=== PATIENT | female | born 1940 | race Caucasian/White ===

== ENCOUNTER → 2018-07-16 | Outpatient (CLI) | payer OTHER ==
--- NOTE | 2018-07-16 17:07 | KCIC ---
SHOULDER 2+V LEFT History: Left shoulder pain, soft tissue swelling and limited range of motion Comparison: None. Findings: 4 views of the left shoulder are submitted. There is narrowing of the acromiohumeral distance. No acute fracture is identified. Humeral head articulates with the glenoid. There are nonspecific soft tissue calcifications more posteriorly. There is soft tissue swelling. Impression: 1. There is soft tissue swelling. No acute fracture is identified. Electronically signed by: Gustavo Mazariegos MD (07/16/2018 5:04 PM) [facility]
== END | disposition home or self-care (01) ==
LOC: KCIC 14:43
PROVIDERS: ATTEND Family Medicine
DX: M25.512 Pain in left shoulder (principal); M79.89 Other specified soft tissue disorders
CPT/HCPCS: 73030

== ENCOUNTER → 2018-09-03 | Outpatient (CLI) | payer OTHER ==
--- NOTE | 2018-09-03 16:40 | KCIC ---
MR of the left shoulder HISTORY: Left shoulder pain. Injury in July. TECHNIQUE: Routine multiplanar sequences are obtained. FINDINGS: Moderate to severe motion degradation Acromioclavicular joint is mildly degenerative. Full-thickness rupture of the supraspinatus and infraspinatus tendons with severe retraction to the superior glenoid. High-grade subscapularis tendon tear. Moderate to severe muscle atrophy with fatty infiltration. Large subdeltoid bursal effusion which communicates with a joint effusion. Severe primary osteoarthritis of the glenohumeral joint. There is flattening and deformity of the medial humeral head articular surface with a scalloped concave morphology. There is flattening and volume loss of the glenoid. Diffuse labral irregularity compatible with degeneration/degenerative tearing. Biceps tendon not well seen. Marrow edema within the medial humeral head and shaft, probably reactive. This is borderline hypointense on T1-weighted images, somewhat greater than would be typical for reactive change or red marrow hyperplasia, however. No overtly aggressive bone destruction. No evidence of acute fracture. There is diffuse soft tissue edema. IMPRESSION: 1. Massive rotator cuff tear. 2. Large joint and bursal effusion. 3. Severe primary osteoarthritis with chronic appearing deformity and volume loss of the humeral head and glenoid. Diffuse labral degeneration/tear. 4. Nonvisualized biceps tendon. 5. Marrow heterogeneity at the medial humeral head and proximal shaft, could be hematopoietic marrow or reactive in nature, although the degree of T1 signal loss is somewhat greater than typical. Correlate for any history of myeloproliferative disorder, depending on clinical concern nuclear medicine bone scan could be obtained for further evaluation. Electronically signed by: Luiz Hadley MD (09/03/2018 4:37 PM) [facility]
== END | disposition home or self-care (01) ==
LOC: KCIC MRI 10:28
PROVIDERS: ATTEND Orthopaedic Surgery Sports Medicine
DX: S46.012A Strain of muscle(s) and tendon(s) of the rotator cuff of left shoulder, initial encounter (principal); M25.412 Effusion, left shoulder; M19.012 Primary osteoarthritis, left shoulder; M62.58 Muscle wasting and atrophy, not elsewhere classified, other site; X58.XXXA Exposure to other specified factors, initial encounter; Y93.89 Activity, other specified; Y92.89 Other specified places as the place of occurrence of the external cause; Y99.8 Other external cause status
CPT/HCPCS: 73221

== ENCOUNTER 2019-01-12 14:36 | Inpatient (IN) | payer OTHER ==
[~2019-01-12] VITALS: Ht 157.5 cm; Wt 51.7 kg
[2019-01-12] MEDS ORDERED: MORPHINE SULFATE 4 MG/ML VIAL. IV/SQ PRN (15:15)
[2019-01-12 15:35] LABS: BASO # 0.1 x10^3/uL (0.0-0.2); BASO % 1 % (0-3); EOS # 0.2 x10^3/uL (0.0-0.7); EOS % 2 % (0-3); HEMATOCRIT 31.6 % (36.0-47.0); HEMOGLOBIN 10.6 g/dL (12.0-15.5); LYMPH # 1.8 x10^3/uL (1.0-4.8); LYMPH % 21 % (24-48); MEAN CORPUSCULAR HEMOGLOBIN 31 pg (25-35); MEAN CORPUSCULAR HGB CONC 33 g/dL (31-37); MEAN CORPUSCULAR VOLUME 92 fL (79-100); MONO # 0.7 x10^3/uL (0.0-1.1); MONO % 8 % (0-9); NEUT % 68 % (31-73); PLATELET COUNT 337 x10^3/uL (140-400); RED BLOOD COUNT 3.44 x10^6/uL (3.50-5.40); RED CELL DISTRIBUTION WIDTH 13.9 % (11.5-14.5); WHITE BLOOD COUNT 8.8 x10^3/uL (4.0-11.0)
[2019-01-12 15:45] LABS: CALCIUM 10.3 mg/dL (8.5-10.1); CREATININE 1.4 mg/dL (0.6-1.0); GFR 36.2; POTASSIUM 4.5 mmol/L (3.5-5.1)
[2019-01-12 15:48] LABS: PROTHROMBIN TIME PATIENT 13.2 SEC (11.7-14.0)
[2019-01-12 15:52] LABS: ALBUMIN 4.1 g/dL (3.4-5.0); ALBUMIN/GLOBULIN RATIO 1.1 (1.0-1.7); MAGNESIUM 1.8 mg/dL (1.8-2.4); TOTAL BILIRUBIN 0.6 mg/dL (0.2-1.0)
[2019-01-12] MEDS ORDERED: diazePAM 2 MG TABLET PO ONE (16:00)
[2019-01-12] MEDS ORDERED: IV NORMAL SALINE 1000ML BAG 1,000 ML IV ONE ×2 (16:00→19:15)
[2019-01-12] MEDS ORDERED: CONTRAST GIVEN. MC PRN (16:00)
[2019-01-12] MEDS ORDERED: IOHEXOL 350 MG/ML 100 ML VIAL. IV ONE (16:15)
--- NOTE | 2019-01-12 16:57 | RAD ---
CT HEAD AND CERVICAL SPINE WO Date: 01/12/2019 3:11 PM Clinical Indication: Headache, neck pain Comparison: None. Technique: 5 mm axial tomographic images were obtained of the head without contrast. These were viewed on brain and bone windows. Noncontrast CT of the cervical spine was performed. Sagittal and coronal reformats were performed and evaluated. One or more of the following dose reduction techniques were utilized: Automated exposure control (AEC), Adjustment of mA and/or kV according to patient size, Use of iterative reconstruction technique such as ASiR, CT scan done according to ALARA and image gently/image wisely HEAD FINDINGS: Mild generalized cerebral and cerebellar volume loss. Moderate nonspecific periventricular hypoattenuation, most commonly seen with chronic small vessel ischemic disease. No intra- or extra-axial mass or fluid collection. No acute hemorrhage. The ventricles are normal in size, shape, and morphology. The curtis-white matter junction is normal. The basilar cisterns are patent. The visualized paranasal sinuses are normal. The visualized portions of the orbits and globes are normal. The mastoid air cells are clear. No aggressive osseous lesion or fracture. CERVICAL SPINE FINDINGS: Straightening of the cervical lordosis. Trace anterolisthesis at C2-3. Trace retrolisthesis at C4-5. Trace anterolisthesis of T1-T2. No acute fracture. No aggressive lytic or blastic osseous lesions. Severe multilevel degenerative disc space height loss. Multilevel moderate spinal canal stenosis secondary to disc protrusions and marginal osteophytes, severe at C4-5 and C5-6. Multilevel moderate to severe neuroforaminal narrowing secondary to uncovertebral arthrosis. Multilevel severe facet arthrosis. The thyroid gland is normal. No cervical lymphadenopathy. Bilateral carotid atherosclerosis. The visualized aerodigestive tract is normal. The visualized portions of the lungs are clear. IMPRESSION: 1. No acute intracranial process. 2. No acute cervical spine fracture. 3. Advanced cervical spondylosis with severe spinal stenosis at C4-5 and C5-6. Electronically signed by: Gustavo Kim MD (01/12/2019 4:54 PM) [facility]
[2019-01-12 17:17] LABS: BILIRUBIN,URINE NEGATIVE (NEG); CLARITY,URINE CLEAR; COLOR,URINE YELLOW; NITRITE,URINE NEGATIVE (NEG); PROTEIN,URINE NEGATIVE (NEG-TRACE); UROBILINOGEN,URINE 0.2 mg/dL (0.2 mg/dL)
--- NOTE | 2019-01-12 17:20 | RAD ---
Exam: CT of chest, abdomen and pelvis and bilateral lower extremities INDICATION: Chest and back pain with leg tightness TECHNIQUE: Sequential axial images through the chest, abdomen and pelvis and bilateral lower extremities obtained following the administration of 100 mL of Omni 350 IV contrast. Sagittal and coronal reformatted images were reconstructed from the axial data and reviewed. Comparisons: None FINDINGS: Visualized portions of the thyroid. No enlarged mediastinal lymph nodes are identified. Heart is enlarged. No pericardial effusion. Thoracic aorta has a normal course and caliber. Pulmonary artery is not enlarged. Airways are patent. There are strandy opacities at the lung bases likely representing atelectasis. No suspicious lung nodules. No pleural effusion or thickening. Evaluation of the solid organs is limited secondary to arterial phase of the exam. Liver, spleen, pancreas and adrenals are unremarkable. Gallstones are noted within the gallbladder. Within the upper pole of the right kidney there is a 3.0 cm enhancing mass. No perinephric inflammation or hydronephrosis. No renal or ureteral calculi are identified. Bladder is distended and appears thin-walled. Uterus is absent. No abnormal adnexal mass. Diverticulosis is noted throughout the colon. Otherwise, Large and small bowel are unremarkable. Appendix is not identified. No free intra-abdominal air or fluid. No enlarged intra-abdominal lymph nodes. Abdominal aorta has a normal course and caliber. No significant atherosclerotic plaque identified in the abdominal aorta or major branch vessels. S-shaped scoliotic curvature of the thoracolumbar spine. No suspicious osseous lesions or acute fractures are identified. Lower extremity: Bilateral lower extreme the arterial vasculature is patent. There is a moderate-sized right suprapatellar effusion. There is a small left-sided suprapatellar effusion. No acute fractures. IMPRESSION: 1. No evidence for aortic dissection or aneurysm. 2. Bilateral lower extremity arterial vasculature is patent. 3. A 3.0 cm enhancing mass at the upper pole of the right kidney, favored represent primary renal malignancy. 4. Diverticulosis without evidence of acute diverticulitis. 5. Bladder is markedly distended. Exposure: One or more of the following in the visualized dose reduction techniques were utilized for this examination: 1. Automated exposure control 2. Adjustment of the MA and/or KV according to patient size 3. Use of iterative of reconstructive technique Electronically signed by: Jacob Polanco MD (01/12/2019 5:16 PM) [facility]
[2019-01-12 17:25] LABS: SQUAMOUS EPITHELIAL CELL,UR MOD /LPF
[2019-01-12 17:26] LABS: BACTERIA,URINE MODERATE /HPF (0-FEW); RBC,URINE OCC /HPF (0-2)
--- NOTE | 2019-01-12 18:19 | PHYS DOC ---
Past Medical History Past Medical History: Diabetes-Type II, Hypertension Past Surgical History: Hysterectomy Alcohol Use: None Drug Use: None Adult General Chief Complaint Chief Complaint: CHEST PAIN HPI HPI Patient is a 78 year old female with history of hypertension, diabetes type 2, chronic back pain, chronic neck pain, who presents to the ED today with multiple complaints. Patient is complaining of pain all the way from her neck, to her mid and low back as well as her legs, when asked if her chest hurts she says yes everything hurts, when asked if her abdomen hurts, she says yes, she also reports she had her eyes dilated 3 days ago for degenerative eye disease and has had blurry vision on and off since then. Patient states she does not know when this pain began but she states it is always there. She is a very poor historian. Right now she is alone in the ED. Denies any known injury. Review of Systems Review of Systems Constitutional: Denies fever or chills [] Eyes: Denies change in visual acuity, redness, or eye pain [] HENT: Denies nasal congestion or sore throat [] Respiratory: Denies cough or shortness of breath [] Cardiovascular: Reports everything hurting including chest GI: reports everything hurting including her abdomen. Denies nausea, vomiting, bloody stools or diarrhea [] : Denies dysuria or hematuria [] Musculoskeletal:reports pain from neck legs Integument: Denies rash or skin lesions [] Neurologic: Denies headache, focal weakness or sensory changes [] All other systems were reviewed and found to be within normal limits, except as documented in this note. Current Medications Current Medications Current Medications Medications (Trade) Dose Ordered Sig/Nithin Start Time Stop Time Status Last Admin Dose Admin Diazepam (Valium) 2 mg 1X ONCE 01/12/19 16:00 01/12/19 16:01 DC 01/12/19 15:57 2 MG Info (CONTRAST GIVEN -- Rx MONITORING) 1 each PRN DAILY PRN 01/12/19 16:00 01/14/19 15:59 Iohexol (Omnipaque 350 Mg/ml) 100 ml 1X ONCE 01/12/19 16:15 01/12/19 16:16 DC 01/12/19 16:15 100 ML Morphine Sulfate (Morphine Sulfate) 4 mg PRN Q15MIN PRN 01/12/19 15:15 01/13/19 15:14 01/12/19 17:09 4 MG Sodium Chloride 1,000 ml @ 1,000 mls/hr 1X ONCE 01/12/19 16:00 01/12/19 16:59 DC 01/12/19 17:00 1,000 MLS/HR Allergies Allergies Allergies Coded Allergies Type Severity Reaction Last Updated Verified No Known Drug Allergies 01/12/19 No Physical Exam Physical Exam Constitutional: Well developed, well nourished, no acute distress, non-toxic appearance. [] HENT: Normocephalic, atraumatic, bilateral external ears normal, oropharynx moist, no oral exudates, nose normal. [] Eyes: PERRLA, EOMI, conjunctiva normal, no discharge. [] Neck: Normal range of motion, diffuse paraspinal muscle cervical tenderness as well as tenderness to her midline cervical spine, supple, no stridor. [] Cardiovascular:Heart rate regular rhythm, no murmur [] Lungs & Thorax: Bilateral breath sounds clear to auscultation [] Abdomen: Bowel sounds normal, soft, no tenderness, no masses, no pulsatile masses. [] Skin: Warm, dry, no erythema, no rash. [] Back: Diffuse tenderness throughout the spine, no CVA tenderness. [] Extremities: No tenderness, no cyanosis, no clubbing, ROM intact, no edema. [] Neurologic: Alert and oriented X 3, normal motor function, normal sensory function, no focal deficits noted. Negative Homans sign bilaterally Psychologic: Affect normal, judgement normal, mood normal. [] Current Patient Data Vital Signs Vital Signs Date Time Temp Pulse Resp B/P (MAP) Pulse Ox O2 Delivery O2 Flow Rate FiO2 01/12/19 18:00 64 16 164/73 (103) 98 Room Air 01/12/19 14:36 97.5 97.5 Lab Values Laboratory Tests Test 01/12/19 15:25 01/12/19 17:03 White Blood Count 8.8 x10^3/uL (4.0-11.0) Red Blood Count 3.44 x10^6/uL (3.50-5.40) L Hemoglobin 10.6 g/dL (12.0-15.5) L Hematocrit 31.6 % (36.0-47.0) L Mean Corpuscular Volume 92 fL (79-100) Mean Corpuscular Hemoglobin 31 pg (25-35) Mean Corpuscular Hemoglobin Concent 33 g/dL (31-37) Red Cell Distribution Width 13.9 % (11.5-14.5) Platelet Count 337 x10^3/uL (140-400) Neutrophils (%) (Auto) 68 % (31-73) Lymphocytes (%) (Auto) 21 % (24-48) L Monocytes (%) (Auto) 8 % (0-9) Eosinophils (%) (Auto) 2 % (0-3) Basophils (%) (Auto) 1 % (0-3) Neutrophils # (Auto) 6.0 x10^3/uL (1.8-7.7) Lymphocytes # (Auto) 1.8 x10^3/uL (1.0-4.8) Monocytes # (Auto) 0.7 x10^3/uL (0.0-1.1) Eosinophils # (Auto) 0.2 x10^3/uL (0.0-0.7) Basophils # (Auto) 0.1 x10^3/uL (0.0-0.2) Prothrombin Time 13.2 SEC (11.7-14.0) Prothrombin Time INR 1.0 (0.8-1.1) Sodium Level 140 mmol/L (136-145) Potassium Level 4.5 mmol/L (3.5-5.1) Chloride Level 102 mmol/L (98-107) Carbon Dioxide Level 26 mmol/L (21-32) Anion Gap 12 (6-14) Blood Urea Nitrogen 41 mg/dL (7-20) H Creatinine 1.4 mg/dL (0.6-1.0) H Estimated GFR (Cockcroft-Gault) 36.2 BUN/Creatinine Ratio 29 (6-20) H Glucose Level 114 mg/dL (70-99) H Calcium Level 10.3 mg/dL (8.5-10.1) H Magnesium Level 1.8 mg/dL (1.8-2.4) Total Bilirubin 0.6 mg/dL (0.2-1.0) Aspartate Amino Transferase (AST) 23 U/L (15-37) Alanine Aminotransferase (ALT) 15 U/L (14-59) Alkaline Phosphatase 82 U/L (46-116) Creatine Kinase 121 U/L (26-192) Creatine Kinase MB (Mass) 2.7 ng/mL (0.0-3.6) Creatine Kinase MB Relative Index 2.2 % (0-4) Troponin I Quantitative < 0.017 ng/mL (0.000-0.055) AS-Xza-K-Type Natriuretic Peptide 538 pg/mL (0-449) H Total Protein 8.0 g/dL (6.4-8.2) Albumin 4.1 g/dL (3.4-5.0) Albumin/Globulin Ratio 1.1 (1.0-1.7) Thyroid Stimulating Hormone (TSH) 1.492 uIU/mL (0.358-3.74) Urine Collection Type Unknown Urine Color Yellow Urine Clarity Clear Urine pH 5.0 Urine Specific [place] 1.010 Urine Protein Negative mg/dL (NEG-TRACE) Urine Glucose (UA) Negative mg/dL (NEG) Urine Ketones (Stick) Negative mg/dL (NEG) Urine Blood Negative (NEG) Urine Nitrite Negative (NEG) Urine Bilirubin Negative (NEG) Urine Urobilinogen Dipstick 0.2 mg/dL (0.2 mg/dL) Urine Leukocyte Esterase Negative (NEG) Urine RBC Occ /HPF (0-2) Urine WBC 1-4 /HPF (0-4) Urine Squamous Epithelial Cells Mod /LPF Urine Bacteria Moderate /HPF (0-FEW) Urine Mucus Slight /LPF Laboratory Tests 01/12/19 15:25 Laboratory Tests 01/12/19 15:25 EKG EKG [address] Calderon sinus rhythm HR 71 no STEMI[] Radiology/Procedures Radiology/Procedures []PROCEDURE: CT ANGIO CHST ABD AORT W/RUNOF Exam: CT of chest, abdomen and pelvis and bilateral lower extremities INDICATION: Chest and back pain with leg tightness TECHNIQUE: Sequential axial images through the chest, abdomen and pelvis and bilateral lower extremities obtained following the administration of 100 mL of Omni 350 IV contrast. Sagittal and coronal reformatted images were reconstructed from the axial data and reviewed. Comparisons: None FINDINGS: Visualized portions of the thyroid. No enlarged mediastinal lymph nodes are identified. Heart is enlarged. No pericardial effusion. Thoracic aorta has a normal course and caliber. Pulmonary artery is not enlarged. Airways are patent. There are strandy opacities at the lung bases likely representing atelectasis. No suspicious lung nodules. No pleural effusion or thickening. Evaluation of the solid organs is limited secondary to arterial phase of the exam. Liver, spleen, pancreas and adrenals are unremarkable. Gallstones are noted within the gallbladder. Within the upper pole of the right kidney there is a 3.0 cm enhancing mass. No perinephric inflammation or hydronephrosis. No renal or ureteral calculi are identified. Bladder is distended and appears thin-walled. Uterus is absent. No abnormal adnexal mass. Diverticulosis is noted throughout the colon. Otherwise, Large and small bowel are unremarkable. Appendix is not identified. No free intra-abdominal air or fluid. No enlarged intra-abdominal lymph nodes. Abdominal aorta has a normal course and caliber. No significant atherosclerotic plaque identified in the abdominal aorta or major branch vessels. S-shaped scoliotic curvature of the thoracolumbar spine. No suspicious osseous lesions or acute fractures are identified. Lower extremity: Bilateral lower extreme the arterial vasculature is patent. There is a moderate-sized right suprapatellar effusion. There is a small left-sided suprapatellar effusion. No acute fractures. IMPRESSION: 1. No evidence for aortic dissection or aneurysm. 2. Bilateral lower extremity arterial vasculature is patent. 3. A 3.0 cm enhancing mass at the upper pole of the right kidney, favored represent primary renal malignancy. 4. Diverticulosis without evidence of acute diverticulitis. 5. Bladder is markedly distended. Exposure: One or more of the following in the visualized dose reduction techniques were utilized for this examination: 1. Automated exposure control 2. Adjustment of the MA and/or KV according to patient size 3. Use of iterative of reconstructive technique Electronically signed by: Jacob Gates MD (01/12/2019 5:16 PM) [facility] DICTATED and SIGNED BY: JACOB GATES MD DATE: 01/12/19 1716 PROCEDURE: CT HEAD AND CERVICAL SPINE WO CT HEAD AND CERVICAL SPINE WO Date: 01/12/2019 3:11 PM Clinical Indication: Headache, neck pain Comparison: None. Technique: 5 mm axial tomographic images were obtained of the head without contrast. These were viewed on brain and bone windows. Noncontrast CT of the cervical spine was performed. Sagittal and coronal reformats were performed and evaluated. One or more of the following dose reduction techniques were utilized: Automated exposure control (AEC), Adjustment of mA and/or kV according to patient size, Use of iterative reconstruction technique such as ASiR, CT scan done according to ALARA and image gently/image wisely HEAD FINDINGS: Mild generalized cerebral and cerebellar volume loss. Moderate nonspecific periventricular hypoattenuation, most commonly seen with chronic small vessel ischemic disease. No intra- or extra-axial mass or fluid collection. No acute hemorrhage. The ventricles are normal in size, shape, and morphology. The curtis-white matter junction is normal. The basilar cisterns are patent. The visualized paranasal sinuses are normal. The visualized portions of the orbits and globes are normal. The mastoid air cells are clear. No aggressive osseous lesion or fracture. CERVICAL SPINE FINDINGS: Straightening of the cervical lordosis. Trace anterolisthesis at C2-3. Trace retrolisthesis at C4-5. Trace anterolisthesis of T1-T2. No acute fracture. No aggressive lytic or blastic osseous lesions. Severe multilevel degenerative disc space height loss. Multilevel moderate spinal canal stenosis secondary to disc protrusions and marginal osteophytes, severe at C4-5 and C5-6. Multilevel moderate to severe neuroforaminal narrowing secondary to uncovertebral arthrosis. Multilevel severe facet arthrosis. The thyroid gland is normal. No cervical lymphadenopathy. Bilateral carotid atherosclerosis. The visualized aerodigestive tract is normal. The visualized portions of the lungs are clear. IMPRESSION: 1. No acute intracranial process. 2. No acute cervical spine fracture. 3. Advanced cervical spondylosis with severe spinal stenosis at C4-5 and C5-6. Electronically signed by: Mg Kim MD (01/12/2019 4:54 PM) [facility] DICTATED and SIGNED BY: MG KIM MD DATE: 01/12/191653 Course & Med Decision Making Course & Med Decision Making Pertinent Labs and Imaging studies reviewed. (See chart for details) This is a 78-year-old female patient presenting to the ED today complaining of pain all the way from her neck to her legs, unknown how long this pain has been present. CBC with a normal WBC, CMP with creatinine of 1.4, BUN 46. Urine analysis is negative for infection. IV fluids were given. CT of the head, cervical spine, CTA chest, abdomen and pelvis with runoff is negative for dissection, noted for renal malignancy. Patient's family members were in the ED at the beginning of the visit, they left. Nursing staff states they talked to patient sister who reported patient stays at home alone and is refusing to go to any assisted and all her pain is chronic for 4 years Patient herself requesting to be admitted. Spoke with Dr. Stewart who requested we try to ambulate patient if she is able to ambulate she can go home Nursing staff attempted to get patient up she was unable to get up ambulate, complained of dizziness was uncooperative too. Spoke with Dr. Stewart and he accepted patient for admission Dragon Disclaimer Dragon Disclaimer This electronic medical record was generated, in whole or in part, using a voice recognition dictation system. The HEART Score for CP Pts HEART Score for Chest Pain: HEART Score for Chest Pain Response (Comments) Value History Slighlty/Non-Suspicious 0 ECG Normal 0 Age > 65 2 Risk Factors 1 or 2 Risk Factors 1 Troponin < Normal Limit 0 Total 3 Risk Factors: Risk Factors: DM, Current or recent (<one month) smoker, HTN, HLP, family history of CAD, obesity. Risk Scores: Score 0 - 3: 2.5% MACE over next 6 weeks - Discharge Home Score 4 - 6: 20.3% MACE over next 6 weeks - Admit for Clinical Observation Score 7 - 10: 72.7% MACE over next 6 weeks - Early Invasive Strategies Departure Departure Impression: Primary Impression: DJD (degenerative joint disease) of cervical spine Additional Impressions: Chronic neck pain Chronic back pain Dehydration Disposition: ADMITTED INPATIENT Condition: STABLE Referrals: SAMANTA FLORES MD (PCP) Problem Qualifiers Primary Impression: DJD (degenerative joint disease) of cervical spine Spinal osteoarthritis complication: unspecified spinal osteoarthritis Qualified Codes: M47.812 - Spondylosis without myelopathy or radiculopathy, cervical region Additional Impressions: Chronic back pain Back pain location: low back pain Back pain laterality: bilateral Sciatica presence: without sciatica Qualified Codes: M54.5 - Low back pain; G89.29 - Other chronic pain MCKAY ESCOBEDO APRN Jan 12, 2019 18:19
[2019-01-12] MEDS ORDERED: MORPHINE SULFATE 4 MG/ML VIAL. IV PRN (19:15)
[2019-01-12] MEDS ORDERED: ACETAMINOPHEN 325 MG TABLET. PO PRN (19:15)
[2019-01-12] MEDS ORDERED: ONDANSETRON PF 4 MG/2 ML VIAL. IV PRN (19:15)
[2019-01-12 20:00] VITALS: BP 165/70
[2019-01-12 23:00] VITALS: BP 131/46
--- NOTE | 2019-01-12 23:30 | NUR ---
Pt arrived [facility] approx 1947 via cart accompanied with ED staff and pts cousin. History was obtained to the best of there ability. Home meds could not be recalled, spoke with Dtr she is to bring them in the AM. Pt is alert oriented X4, forgetful at times and very anxious. This RN was able to redirect pt. call light was explained and left within reach, understanding was voiced. Pt instructed not to get up without assistance, again understanding was voiced. Pt with co headache, morphine administered. Will continue to monitor.
[2019-01-13 03:00] VITALS: BP 140/62
[2019-01-13] MEDS ORDERED: METF500T16 PO (06:34)
[2019-01-13 07:00] VITALS: BP 155/51
[2019-01-13 07:44] LABS: CREATININE 1.1 mg/dL (0.6-1.0); GFR 47.8; POTASSIUM 4.3 mmol/L (3.5-5.1)
[2019-01-13] MEDS ORDERED: FLU VAX QS 2019-20 (36MOS+)/PF 0.5 ML SYRINGE. VAX IM ONE (09:00)
[2019-01-13 11:00] VITALS: BP 151/58
[2019-01-13] MEDS ORDERED: POTA99TA3 PO (11:33)
[2019-01-13] MEDS ORDERED: CARB15DR3 EACHEYE (11:33)
[2019-01-13] MEDS ORDERED: ASPI81TA50 PO (11:33)
[2019-01-13] MEDS ORDERED: DIPH50CA PO (11:33)
[2019-01-13] MEDS ORDERED: VIT1CAPS12 PO (11:33)
[2019-01-13] MEDS ORDERED: NAPR500T8 PO (11:33)
[2019-01-13] MEDS ORDERED: LISI-130 PO (11:33)
[2019-01-13] MEDS ORDERED: MULT-246 PO (11:33)
[2019-01-13] MEDS ORDERED: TRIA1CAP3 PO (11:33)
[2019-01-13] MEDS ORDERED: CALC600T4 PO (11:33)
[2019-01-13] MEDS ORDERED: SIMV40TA18 PO (11:33)
--- NOTE | 2019-01-13 11:52 | EKG ---
[facility] [address] [place] [id number] Test Date: 2019-01-12 Test Time: 14:55:13 Pat Name: ROBBIN SANCHEZ Department: Room: 406 Gender: F [employer]: : 1940 Requested By: MCKAY ESCOBEDO Order Number: [id number] Reading MD: Valentino Madera MD Measurements Intervals [place] Rate: 70 P: 90 MO: 166 QRS: -11 QRSD: 78 T: 49 QT: 374 QTc: 410 Interpretive Statements SINUS RHYTHM Electronically Signed On 01-21-2019 8:58:38 CDT by Valentino Madera MD
[2019-01-13] MEDS: AMINO AC 3%/ELECTROLYTE/GLYCER 1,000 ML IV SCH (12:06)
--- NOTE | 2019-01-13 13:07 | HP ---
ADMIT DATE: 01/12/2019 CHIEF COMPLAINT: Chest pain, back pain and neck pain. HISTORY OF PRESENT ILLNESS: The patient is a pleasant elderly female who presented to the ER with the above chief complaints. Basically, her neck has been bothering, has been radiating down to her back. They were concerned she could have had a dissection so they did a CAT scan in the ER. There is no dissection; however, we stumbled into a 3 cm renal mass suspicious for malignancy. The patient is now admitted to the medical floor. We are consulting Oncology. PAST MEDICAL HISTORY: Diabetes, hypertension, hysterectomy. ALLERGIES: None. FAMILY HISTORY: Diabetes. SOCIAL HISTORY: She does not drink, smoke or take drugs. MEDICATIONS: Reviewed, please refer to the MRAD. REVIEW OF SYSTEMS: GENERAL: No weakness or fevers. She complains of a 14-pound weight loss and decreased appetite. SKIN: No bruising, hair changes or rashes. EYES: No blurred, double or loss of vision. NOSE AND THROAT: No history of nosebleeds, hoarseness or sore throat. HEART: No history of palpitations, chest pain or shortness of breath on exertion. LUNGS: Denies cough, hemoptysis, wheezing or shortness of breath. GASTROINTESTINAL: Denies changes in appetite, nausea, vomiting, diarrhea or constipation. GENITOURINARY: No history of frequency, urgency, hesitancy or nocturia. NEUROLOGIC: Denies history of numbness, tingling, tremor or weakness. PSYCHIATRIC: No history of panic, anxiety or depression. ENDOCRINE: No history of heat or cold intolerance, polyuria or polydipsia. EXTREMITIES: Denies muscle weakness, joint pain, pain on walking or stiffness. MUSCULOSKELETAL: She complains of back pain. PHYSICAL EXAMINATION: VITALS: Within normal limits and are stable. GENERAL: No apparent distress. Alert and oriented. HEENT: Head is normocephalic, atraumatic, pupils were equally round and reactive to light and accommodation. NECK: Supple, no JVD, no thyromegaly was noted. LUNGS: Clear to auscultation in all lung olivera without rhonchi or wheezing. HEART: RRR, S1, S2 present. Peripheral pulses intact, no obvious murmurs were noted. ABDOMEN: Soft, nontender. Positive bowel sounds no organomegaly, normal bowel sounds. EXTREMITIES: Without any cyanosis, clubbing, or edema. Pedal pulses intact, Homans sign is negative. NEUROLOGIC: Normal speech, normal tone. A & O x 3, moves all extremities, no obvious focal deficits. PSYCHIATRIC: Normal affect, normal mood. Stable. SKIN: No ulcerations or rashes, good skin turgor, no jaundice. VASCULAR: Good capillary refill, neurovascular bundle appears to be intact. LABORATORY AND DIAGNOSTIC DATA: White count is 8, hemoglobin 10.6, platelets 337. Electrolytes: Sodium 145, potassium 4.3, chloride 111, bicarbonate 24, BUN 35, creatinine 1.1, glucose 103. Urinalysis negative. INR 1. CAT scan shows a 3 cm right renal mass. ASSESSMENT AND PLAN: Weight loss and incidental finding of a right renal mass, suspect possible renal cell carcinoma. The patient has been admitted. We are going to consult Oncology for a second opinion. I might add in procalamine at 75 an hour to help with weight loss. DVT prophylaxis, home meds, PT, OT, frequent labs. Prognosis guarded. BEAR MISHRA DO DR: KIKI/kimber JOB#: [id number] / [id number]
[2019-01-13 15:00] VITALS: BP 138/48
[2019-01-13] MEDS ORDERED: NAPROXEN 500 MG TABLET PO PRN (17:45)
[2019-01-13] MEDS ORDERED: diphenhydrAMINE HCL 25 MG CAPSULE PO PRN (17:45)
[2019-01-13] MEDS ORDERED: POLYVINYL ALCOHOL 1.4% OPHTH SOLUTION 15ML BOTTLE. OU PRN (17:45)
[2019-01-13 19:00] VITALS: BP 147/70
[2019-01-13] MEDS ORDERED: SIMVASTATIN 40 MG TABLET. PO SCH (21:00)
[2019-01-13] MEDS: MULTIVITAMIN I-VITE TABLET. PO SCH (22:31)
[2019-01-13 23:00] VITALS: BP 138/50
[2019-01-14] MEDS: AMINO AC 3%/ELECTROLYTE/GLYCER 1,000 ML IV SCH (01:20)
[2019-01-14 03:00] VITALS: BP 151/64
[2019-01-14 07:00] VITALS: BP 151/55
[2019-01-14] MEDS ORDERED: MULTIVITAMIN with MINERAL TABLET. PO SCH (09:00)
[2019-01-14] MEDS ORDERED: CALCIUM CARBONATE 500 MG TABLET PO SCH (09:00)
[2019-01-14] MEDS ORDERED: NON FORMULARY ITEM (Potassium Gluconate 99 MG) PO SCH (09:00)
[2019-01-14] MEDS ORDERED: TRIAMTERENE/HCTZ 37.5/25MG TABLET. PO SCH (09:00)
[2019-01-14] MEDS ORDERED: LISINOPRIL 20 MG TABLET PO SCH (09:00)
[2019-01-14] MEDS ORDERED: ASPIRIN ENTERIC COATED 81 MG TABLET.DR. PO SCH (09:00)
[2019-01-14] MEDS: MULTIVITAMIN I-VITE TABLET. PO SCH (09:03)
[2019-01-14 09:52] LABS: BASO # 0.1 x10^3/uL (0.0-0.2); BASO % 1 % (0-3); EOS # 0.4 x10^3/uL (0.0-0.7); EOS % 5 % (0-3); HEMATOCRIT 29.4 % (36.0-47.0); HEMOGLOBIN 9.8 g/dL (12.0-15.5); LYMPH # 1.7 x10^3/uL (1.0-4.8); LYMPH % 22 % (24-48); MEAN CORPUSCULAR HEMOGLOBIN 31 pg (25-35); MEAN CORPUSCULAR HGB CONC 33 g/dL (31-37); MEAN CORPUSCULAR VOLUME 93 fL (79-100); MONO # 0.7 x10^3/uL (0.0-1.1); MONO % 9 % (0-9); NEUT # 4.8 x10^3/uL (1.8-7.7); NEUT % 63 % (31-73); PLATELET COUNT 291 x10^3/uL (140-400); RED BLOOD COUNT 3.17 x10^6/uL (3.50-5.40); WHITE BLOOD COUNT 7.7 x10^3/uL (4.0-11.0)
--- NOTE | 2019-01-14 10:48 | CONS ---
DATE OF CONSULTATION: 01/14/2019 MEDICAL ONCOLOGY CONSULTATION REPORT REFERRING PHYSICIAN: Dr. Elsy Barrow. REASON FOR CONSULTATION: Right renal mass. HISTORY OF PRESENT ILLNESS: The patient is an 78-year-old female who presented to the Emergency Room at [facility] on January 12, 2019 with complaints of chest pain, back pain and neck pain. She also reports 20-pound weight loss in 3 months prior to admission. Her appetite is decreased and she uses Meals on Wheels, which she does not like sometimes. She uses a walker to get around and her sister helps her when she needs to go out. She underwent a CT scan of the chest, abdomen and pelvis and bilateral lower extremities on 01/12/2019 which revealed a 3 cm mass at the upper pole of the right kidney concerning for primary renal cell carcinoma. There is evidence of diverticulosis and bladder distention. No evidence of aortic dissection or aneurysm. CT scan of the head and cervical spine on 01/12/2019 reveals advanced cervical spondylosis with severe spinal stenosis at C4-C5 and C5-C6. I was asked to see the patient for evaluation of renal mass. She denies any hematuria. No flank pain. PAST MEDICAL HISTORY: Diabetes, hypertension and hysterectomy. FAMILY HISTORY: Mother had cancer of unknown type. Sister had uterine cancer. SOCIAL HISTORY: No smoking or alcohol abuse. REVIEW OF SYSTEMS: A 12-point review of system was performed. Pertinent positives are mentioned in the history of present illness. Rest of the system review is negative. PHYSICAL EXAMINATION: GENERAL APPEARANCE: The patient is an 78-year-old female who is in no acute cardiorespiratory distress. VITAL SIGNS: Blood pressure 151/55 and temperature 97.4. HEENT: Atraumatic, normocephalic. EYES: No icterus. NECK: Supple. CHEST: Bilaterally symmetrical. HEART: S1, S2 normal. ABDOMEN: Soft, nontender, no hepatosplenomegaly. CENTRAL NERVOUS SYSTEM: No focal neurological deficits. LYMPHATICS: No lymphadenopathy. SKIN: No rashes. PSYCHOLOGIC: Mood and affect are appropriate. MUSCULOSKELETAL: No joint effusions. LABORATORY DATA: WBC 8.8, hemoglobin 10.6 and platelet count 337, creatinine 1.1, calcium 9.0, magnesium 1.8, total bilirubin 0.6, AST 23, ALT 15, alkaline phosphatase 82, total protein 8 and albumin 4.1. IMPRESSION AND PLAN: 1. Renal mass measuring 3 cm involving the upper pole of the right kidney, favored to represent primary renal malignancy per Radiology. There is no evidence of metastatic disease and hence this is potentially resectable. I would recommend urology consultation. I discussed in detail with the patient regarding the CT scan findings and the clinical concern for malignancy and I also discussed with her the role of surgery, local therapy and chemotherapy in renal cell malignancy. At this point, this appears to be a localized cancer and this is potentially resectable and she agrees to consult urology. 2. Back pain. I suspect that this is due to spinal stenosis. No clinical evidence of malignancy. I will obtain a bone scan. 3. Anemia. I will obtain iron studies, B12 and folic acid levels. EMILE SUMNER MD DR: COURTNEY/nts JOB#: [id number] / [id number] [email or web address]
[2019-01-14 11:00] VITALS: BP 149/79
--- NOTE | 2019-01-14 12:23 | NUR ---
SS following for discharge planning. SS reviewed pt chart. PT/OT recommending longterm unit. Per Dr. Barrow pt will need outpatient appt at for urology. SS met with pt to discuss discharge planning and longterm unit. Pt declined longterm unit and stated that she was going home with her sister and her sister would assist with appt for urology. SS discussed home healthcare. Pt currently declining home healthcare at this time stating that her sister will help her. SS will continue to follow for discharge planning.
--- NOTE | 2019-01-14 12:40 | SNU/HH DC ---
DISCHARGE WITH HOME HEALTH DISCHARGE INFORMATION: Final Diagnosis: Problems Medical Problems: (1) Chronic back pain Status: Acute (2) Chronic neck pain Status: Acute (3) Dehydration Status: Acute (4) DJD (degenerative joint disease) of cervical spine Status: Acute Condition on Discharge: Stable CODE STATUS: Code Status: Full HOME HEALTH: Face to Face: I certify this patient is under my care and that I, or a nurse practitioner or physician's senior assistant manager working with me, had a face to face encounter that meets the physician face to face encounter requirements with this patient on []. Medical Complications: Other (renal cell carcinoma awaiting surgery) RN For Eval/Treatment: Yes Physical Therapy For: Evalulation/Treatment Occupational Therapy For: Evaluation/Treatment Speech Language Pathology For: Evaluation/Treatment Home Health Aide For: Self-care HAND STRAIGHTENER For: Community Resources Pt Meets Homebound Status: Poor coordination w/ amb. POST DISCHARGE ORDERS: DIET AFTER DISCHARGE: Renal CERTIFICATION STATEMENT: Certification Statement: Certification Statement: Based on the above finding, I certify that this patient is confined to the home and needs intermittent snf care, physical therapy and/or speech therapy, or continues to need occupational therapy.~ This patient is under my care, and I have initiated the establishment of the plan of care.~ This patient will be followed by myself or a community physician who will periodically review the plan of care. Home Meds Reported Medications Vit A/Vit C/Vit E/Zinc/Copper (PRESERVISION AREDS SOFTGEL) 1 Each Capsule, 1 CAP PO BID for supplement for 30 Days, #60 CAP 0 Refills 01/13/19 Carboxymethylcellulos/Glycerin (REFRESH OPTIVE EYE DROPS) 15 Ml Drops, 1 DROP EACHEYE QID for dry eyes, #15 ML 3 Refills 01/13/19 Triamterene/Hydrochlorothiazid (TRIAMTERENE-HCTZ 37.5-25 MG CP) 1 Each Capsule, 1 CAP PO DAILY for hypertension , CAP 01/13/19 Lisinopril (LISINOPRIL) 40 Mg Tablet, 40 MG PO DAILY for FOR HYPERTENSION, #30 TAB 0 Refills 01/13/19 Diphenhydramine Hcl (DIPHENHYDRAMINE HCL) 50 Mg Capsule, 50 MG PO PRN Q4-6HRS for itching, CAP 01/13/19 Aspirin (ASPIR-LOW) 81 Mg Tablet.dr, 81 MG PO DAILY for anticoagulation , TAB.SR 01/13/19 Simvastatin (SIMVASTATIN) 40 Mg Tablet, 40 MG PO HS for FOR CHOLESTEROL, #30 TAB 0 Refills 01/13/19 Multivitamin (MULTI-VITAMIN DAILY) 1 Each Tablet, 1 TAB PO DAILY for supplement for 30 Days, #30 TAB 0 Refills 01/13/19 Naproxen (NAPROXEN) 500 Mg Tablet.dr, 500 MG PO PRN BID for ankle pain , TAB.SR 01/13/19 Calcium Carbonate (CALCIUM) 600 Mg Tablet, 600 MG PO DAILY for supplement, TAB 01/13/19 Potassium Gluconate (POTASSIUM GLUCONATE) 99 Mg Tablet, 99 MG PO DAILY for supplement , TAB 01/13/19 Metformin Hcl (METFORMIN HCL) 500 Mg Tablet, 500 MG PO BIDWMEALS for ANTI- DIABETIC, TAB 0 Refills 01/13/19 BEAR MISHRA III DO Jan 14, 2019 12:40
--- NOTE | 2019-01-14 13:36 | PDOC ---
[employer] PROGRESS NOTE Chief Complaint Chief Complaint Back pain Neck pain Dehydration R Renal mass History of Present Illness History of Present Illness 01/14/2019 Pt was seen an examined Reports no acute distress Reports that the oncologist saw her yesterday and told her she needed surgery No acute complaints. Vitals/I&O Vitals/I&O: Vital Signs Date Time Temp Pulse Resp B/P (MAP) Pulse Ox O2 Delivery O2 Flow Rate FiO2 01/14/19 11:00 97.8 79 18 149/79 (102) 100 Room Air 97.8 I & O 01/13/19 01/13/19 01/14/19 15:00 23:00 07:00 Intake Total 300 ml 220 ml Balance 300 ml 220 ml Physical Exam General: Alert, Oriented X3, Cooperative Heart: Regular rate Lungs: Clear Abdomen: Normal bowel sounds Extremities: No clubbing, No cyanosis Skin: No rashes Labs Labs: Laboratory Tests Test 01/13/19 16:29 01/13/19 20:31 01/14/19 07:53 01/14/19 09:35 Glucose (Fingerstick) 108 mg/dL (70-99) 96 mg/dL (70-99) 79 mg/dL (70-99) White Blood Count 7.7 x10^3/uL (4.0-11.0) Red Blood Count 3.20 x10^6/uL (3.50-5.70) Hemoglobin 9.8 g/dL (12.0-15.5) Hematocrit 29.4 % (36.0-47.0) Mean Corpuscular Volume 93 fL (79-100) Mean Corpuscular Hemoglobin 31 pg (25-35) Mean Corpuscular Hemoglobin Concent 33 g/dL (31-37) Red Cell Distribution Width 14.0 % (11.5-14.5) Platelet Count 291 x10^3/uL (140-400) Neutrophils (%) (Auto) 63 % (31-73) Lymphocytes (%) (Auto) 22 % (24-48) Monocytes (%) (Auto) 9 % (0-9) Eosinophils (%) (Auto) 5 % (0-3) Basophils (%) (Auto) 1 % (0-3) Neutrophils # (Auto) 4.8 x10^3/uL (1.8-7.7) Lymphocytes # (Auto) 1.7 x10^3/uL (1.0-4.8) Monocytes # (Auto) 0.7 x10^3/uL (0.0-1.1) Eosinophils # (Auto) 0.4 x10^3/uL (0.0-0.7) Basophils # (Auto) 0.1 x10^3/uL (0.0-0.2) Absolute Reticulocyte Count 0.027 x10^6/uL (0.020-0.120) Percent Reticulocyte Count 0.8 % (0.5-2.3) Immature Reticulocyte Fraction 0.36 (0.20-0.60) Iron Level 26 ug/dL (50-170) Total Iron Binding Capacity 301 ug/dL (250-450) Iron Saturation 9 % (15-34) Vitamin B12 Level 596 pg/mL (247-911) Test 01/14/19 12:16 Glucose (Fingerstick) 115 mg/dL (70-99) Review of Systems Review of Systems: Denies N/V/D Denies CP Denies SOB Assessment and Plan Assessmemt and Plan Problems Medical Problems: (1) Chronic back pain Status: Acute (2) Chronic neck pain Status: Acute (3) Dehydration Status: Acute (4) DJD (degenerative joint disease) of cervical spine Status: Acute Back pain Neck pain Dehydration R Renal mass Plan: 1) Continue PPN 2) Labs 3) PT/OT 4) DVT prophylaxis 5) Full Code 6) Pain Control 7) Discussed patient with Dr. Hathaway, he reports that he will setup patient to have urology followup at upon patient D/C to home today. Comment Review of Relevant I have reviewed the following items micheal (where applicable) has been applied. Medications: Current Medications Medications (Trade) Dose Ordered Sig/Nithin Route PRN Reason Start Time Stop Time Status Last Admin Dose Admin Aspirin (Ecotrin) 81 mg DAILY PO 01/14/19 09:00 01/14/19 09:03 Lisinopril (Prinivil) 40 mg DAILY PO 01/14/19 09:00 01/14/19 09:02 Simvastatin (Zocor) 40 mg HS PO 01/13/19 21:00 01/13/19 22:31 Calcium Carbonate/ Glycine (Oscal) 500 mg DAILY PO 01/14/19 09:00 01/14/19 09:03 Artificial Tears (Artificial Tears) 1 drop PRN Q15MIN PRN OU DRY EYE 01/13/19 17:45 01/14/19 09:46 Diphenhydramine HCl (Benadryl) 50 mg PRN Q6HRS PRN PO ITCHING 01/13/19 17:45 01/13/19 22:31 Multivitamins (Thera M Plus) 1 tab DAILY PO 01/14/19 09:00 01/14/19 09:03 Triamterene/HCTZ (Maxzide 37.5/ 25mg) 1 tab DAILY PO 01/14/19 09:00 01/14/19 09:03 Multivitamins/ Minerals (I-Nuris) 1 tab BID PO 01/13/19 21:00 01/14/19 09:03 BEAR MISHRA III DO Jan 14, 2019 13:36
--- NOTE | 2019-01-14 14:15 | NUR ---
Discharge: Pt DC to home (ILF) per private car accompanied by Sister. IV DC'ed by Gisell SULLIVAN, no complications. Spoke with Dr. Hathaway (oncologist) prior to DC to confirm follow up details. Dr. Hathaway states he will arrange an outpatient appointment with [facility], and will review her bone scan results, and for pt to follow up in 2-3 weeks with him. Pt declined to DC to SNF as recommended by physial and occupational therapies.
--- NOTE | 2019-01-14 16:41 | RAD ---
Examination: BONE SCAN WHOLE BODY History: Renal mass, back pain, metastatic evaluation Comparison/Correlation: 01/12/2019 CTA of the chest abdomen and pelvis Findings: 26 mCi technetium 99m MDP was intravenously administered for purposes of total body bone scintigraphy. Uptake of radiotracer involving the right side of the mandible and maxilla likely representing dental disease. Uptake of radiotracer involving the thoracic spine compatible with degenerative change of facet joints and costovertebral junctions noted. Uptake in the lumbar spine compatible with degenerative changes evident. Focal uptake involving the posterolateral aspect of the right 11th rib is noted corresponding to the fracture on recently performed CT exam. Correlation with trauma history. Intense uptake bilaterally involving glenohumeral joints is noted. Intense uptake of the acromioclavicular joint is also seen. These appear to correspond to degenerative change noted on CT exam. Uptake involving the elbows corresponding degenerative change noted. Uptake involving the first carpometacarpal joint bilaterally and other joints of the hand and wrist compatible with degenerative change are present. Intense uptake involving the medial aspect of the right knee joint probably representing degenerative changes present. Uptake over the lesser significance is present at the right lateral femoral condyle and at the medial compartment of the left knee. Impression: Indeterminate uptake involving the right knee region greater than the left knee region. While this may relate to degenerative change, correlation with x-ray examination is recommended for more complete assessment considering the intensity of uptake. No conclusive abnormal uptake to suggest definite bony metastasis. Electronically signed by: Martin Willingham MD (01/14/2019 4:07 PM) [facility]
[2019-01-14] MEDS ORDERED: metFORMIN 500 MG TABLET PO SCH (17:00)
--- NOTE | 2019-01-17 21:02 | DS ---
DATE OF DISCHARGE: 01/14/2019 ADMISSION DIAGNOSIS: Back pain with incidental finding of renal mass. DISCHARGE DIAGNOSIS: Probable renal cell carcinoma. HOSPITAL COURSE: The patient is a pleasant 78-year-old female who presented with back pain and was noted to have a renal mass on imaging. We admitted her and consulted Oncology and Urology. Oncology agrees. She needs to have a nephrectomy, but our urologist team has resigned. We discharged the patient home. Dr. Hathaway was setting up outpatient followup with Urology at the [facility]. TOTAL TIME: 32 minutes. BEAR MISHRA DO DR: Sheldon JOB#: [id number] / [id number]
== END 2019-01-14 14:15 | disposition home or self-care (01) | DRG 686 ==
LOC: ER 14:36 → 4 NORTH 18:42
PROVIDERS: ADMIT Family Medicine; ATTEND Family Medicine
DX: C64.1 Malignant neoplasm of right kidney, except renal pelvis (principal); N17.0 Acute kidney failure with tubular necrosis; M47.812 Spondylosis without myelopathy or radiculopathy, cervical region; Z79.899 Other long term (current) drug therapy; E86.0 Dehydration; K57.90 Diverticulosis of intestine, part unspecified, without perforation or abscess without bleeding; D64.9 Anemia, unspecified; E11.9 Type 2 diabetes mellitus without complications; G89.29 Other chronic pain; I10 Essential (primary) hypertension; M19.90 Unspecified osteoarthritis, unspecified site; M48.02 Spinal stenosis, cervical region; N32.89 Other specified disorders of bladder; Z80.49 Family history of malignant neoplasm of other genital organs; Z83.3 Family history of diabetes mellitus; Z90.710 Acquired absence of both cervix and uterus
CPT/HCPCS: 36415; 70450; 71275; 72125; 75635; 78306; 80048; 80053; 81001; 82553; 82607; 82962; 83540; 83550; 83735; 83880; 84443; 84484; 85025; 85045; 85610; 87086; 90471; 90686; 93005; 96361; 96374; A9503; J2270; J7030; Q0163; Q9967; 97116; 97535; 99285-25; G0378